=== PATIENT | male | born 1970 | race Caucasian/White ===

== ENCOUNTER 2017-05-28 12:14 | Emergency (ER) | payer SELFPAY ==
[2017-05-28 13:01] VITALS: BP 104/72
--- NOTE | 2017-05-28 13:36 | UC ---
Hand/Wrist HPI - HPI Summary HPI Summary: Bilateral wrist pain since Saturday. Scraping tiles with a scraper and has had pain since. - History Of Current Complaint Chief Complaint: UCUpperExtremity Stated Complaint: WRIST INJURY Time Seen by Provider: 05/28/17 13:29 Hx Obtained From: Patient Pain Intensity: 8 Pain Scale Used: 0-10 Numeric - Allergies/Home Medications Allergies/Adverse Reactions: Allergies Allergy/AdvReac Type Severity Reaction Status Date / Time No Known Allergies Allergy Verified 05/28/17 12:26 PMH/Surg Hx/FS Hx/Imm Hx Previously Healthy: Yes - Surgical History Surgical History: None - Social History Alcohol Use: Occasionally Substance Use Type: None Smoking Status (MU): Current Every Day Smoker Type: Cigarettes Amount Used/How Often: 1/2 PPD Household Exposure Type: Cigarettes Physical Exam Vital Signs: Initial Vital Signs Temp 99.1 F 05/28/17 12:20 Pulse 82 05/28/17 12:20 Resp 20 05/28/17 12:20 BP 104/72 05/28/17 12:20 Pulse Ox 99 05/28/17 12:20
== END 2017-05-28 13:36 | disposition left against medical advice (07) ==
LOC: UCEAST 12:14
DX: S69.90XA Unspecified injury of unspecified wrist, hand and finger(s), initial encounter (principal); X58.XXXA Exposure to other specified factors, initial encounter; Y93.9 Activity, unspecified; Y92.9 Unspecified place or not applicable; Z53.21 Procedure and treatment not carried out due to patient leaving prior to being seen by health care provider

== ENCOUNTER 2019-03-02 08:07 | Emergency (ER) | payer BC ==
[2019-03-02 08:26] VITALS: BP 115/77
--- NOTE | 2019-03-02 08:29 | UC ---
Knee Pain HPI - HPI Summary HPI Summary: Patient presents to urgent care reporting ongoing swelling and pain of his left knee. 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 Patient states intermittently for many years he gets pain in his left knee. Patient states usually it feels very soft swelling to spread after 24 hours of Motrin rest. Patient states his been ongoing for 3 days. Patient has pain with flexion and full extension. Patient' s been taking 600 Motrin twice a day with little improvement. No paresthesias. Pain is sharp and feels like it's deep. No direct trauma. Patient without any previous history evaluation of this knee. No fevers or chills. No hip or ankle pain. No erythema. Patient's medications reviewed this visit. - History of Current Complaint Chief Complaint: UCLowerExtremity Stated Complaint: LEFT KNEE PAIN Time Seen by Provider: 03/02/19 08:24 Hx Obtained From: Patient Pain Intensity: 8 - Allergies/Home Medications Allergies/Adverse Reactions: Allergies Allergy/AdvReac Type Severity Reaction Status Date / Time No Known Allergies Allergy Verified 03/02/19 08:20 PMH/Surg Hx/FS Hx/Imm Hx Previously Healthy: Yes - Surgical History Surgical History: None - Family History Known Family History: Positive: Non-Contributory - Social History Occupation: Employed Full-time Lives: With Family Alcohol Use: Occasionally Substance Use Type: None Smoking Status (MU): Light Every Day Tobacco Smoker Type: Cigarettes Amount Used/How Often: 1/2 PPD Household Exposure Type: Cigarettes Review of Systems All Other Systems Reviewed And Are Negative: Yes Constitutional: Positive: Negative Skin: Positive: Negative Musculoskeletal: Positive: Other: - left knee Is Patient Immunocompromised?: No Physical Exam - Summary Physical Exam Summary: Vital Signs Reviewed: Yes A+Ox3, discomfort with movement of knee Eyes: Conjunctiva Clear ENT: Hearing grossly normal neck: supple Respiratory: Positive: No respiratory distress, No accessory muscle use Cardiovascular: skin color reflect adequate perfusion 2+ PT + popliteal pulse Musculoskeletal Exam: + pain with extension > 60 + full flexion - states feels tight + Diffuse edema left knee, superior patella, no focal pain neg laxity lateral joint line. + glex/ext ankle, great toe with pain or weakness. Neurological: Positive: Alert, ambulatory with gait favoring left + gross sensation Psychological: Positive: Normal Response To Family Skin: Positive: no rash, no ecchymosis Triage Information Reviewed: Yes Vital Signs: Initial Vital Signs Temp 99.7 F 03/02/19 08:20 Pulse 99 03/02/19 08:20 Resp 18 03/02/19 08:20 BP 115/77 03/02/19 08:20 Pulse Ox 100 03/02/19 08:20 Diagnostics - Radiology No standard instances Radiology Interpretation Completed By: Radiologist - Patient Name: SUAD RAMÍREZ Medical Record#: [id number] Ordering Physician: Kristal Hernandez MD Acct.#: [id number] : 1970 Age: 48 Sex: M Location: [facility] Exam Date: 03/02/19834 ADM Status: REG ER Order Information: KNEE LEFT 4+ VWS Accession Number: [id number] CPT: 70517 HISTORY: swelling pain knee s/p pronlonged kneeling . COMPARISONS: None relevant available at the time of dictation. VIEWS: 4, Frontal, lateral, axial, and oblique views of the left knee FINDINGS: BONE DENSITY: Normal. BONES: There is no displaced fracture. JOINTS: There is no arthropathy. ALIGNMENT: There is no dislocation. SOFT TISSUES: There is prefemoral soft tissue swelling. OTHER FINDINGS: None. IMPRESSION: SOFT TISSUE SWELLING. NO ACUTE OSSEOUS INJURY. IF SYMPTOMS PERSIST, RECOMMEND REPEAT IMAGING. < Electronically signed by Nathaniel Yo MD in OV> 03/02/19851 Dictated By: Nathaniel Yo MD Dictated Date/Time: 03/02/19851 Transcribed Date/ Time: 03/02/19850 Copy to: CC:Kristal Hernandez MD; No Primary Care Phys,NOPCP Imaging - [facility] - [facility] [address] [address] ph ([phone]) ph ([phone]) ph ( [phone]) This report is only to be considered final once signed by the Provider(s) as displayed in the "<Electronically Signed by >" field (s). Absence of a signature indicates the report is in a draft status and still needs to be finalized. In the event this document was created by someone other than the signing Provider, the individual initiating the document will be listed in the "Entered by:" or "Dictated by:" trejo. 1 of 1 Re-Evaluation - Re-Evaluation First Eval Re-Evaluation Time: 09:00 Comment: reviewed imaging with pt. ricardo wrap, crutches. Dr. Mcnulty 10:45 today Knee Pain Course/Dx - Course Course Of Treatment: Patient presents to urgent care for evaluation of his left knee. Patient with a history of recurrent left knee edema over the last several years. Patient states usually with some Motrin and resting gets better in 24 hours. Patient states this is been ongoing for 3 days. Patient denies any paresthesias. Patient states she's been taking 600 Motrin twice a day. Patient walks with a limp. No erythema no redness to swelling. Patient has never seen by for this. On exam vital signs are stable. Patient does have edema in the anterior superior area of his patella. No erythema or warmth. Distal CSM intact. 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 We'll check imaging. Recommended Ricardo wrap and crutches. I spoke with Dr. Mcnulty, orthopedic office. Patient with a appointment at 1045 today for evaluation. Patient comfortable in agreement with plan. - Differential Dx/Diagnosis Provider Diagnosis: Swelling of left knee joint Discharge - Sign-Out/Discharge Documenting (check all that apply): Patient Departure All imaging exams completed and their final reports reviewed: Yes - Discharge Plan Condition: Stable Disposition: HOME Patient Education Materials: Knee Bursitis (ED) Referrals: No Primary Care Phys,NOPCP [Primary Care Provider] - Moe Mcnulty MD [Medical Doctor] - (10:45am today 03/02/19 Please arrive at 10:30am for paperwork) Additional Instructions: -wear ricardo wrap for comfort and support -apply ice (20 min at a time) every 2-3 hours for the next 2 days -use crutches until you can walk normally without a limp -Elevate your leg - this will help with swelling and pain - Alternate ibuprofen (advil, Motrin) 600mg and tylenol every 3 hours for pain. Take with food. Do NOT take for more than 4-5 days You have an appointment today with Dr. Mcnulty - orthopedic specialst, at 10: 45am - please arrive 15 minutes early for paperwork - Billing Disposition and Condition Condition: STABLE Disposition: Home
== END 2019-03-02 09:23 | disposition home or self-care (01) ==
LOC: EDSEX → UCCORT 08:07
DX: M25.462 Effusion, left knee (principal); F17.210 Nicotine dependence, cigarettes, uncomplicated
CPT/HCPCS: 99213; G0463